=== PATIENT | male | born 1995 | race Caucasian/White ===

== ENCOUNTER 2021-06-18 02:33 | Emergency (ER) | payer BC, OTHER ==
[~2021-06-18] VITALS: Ht 182.9 cm; Wt 90.7 kg
[2021-06-18 04:29] LABS: ABSOLUTE NEUTROPHILS 1.9 thou/uL (1.4-8.2); BASOPHILS 0.5 % (0.0-2.0); EOSINOPHILS 3.1 % (0.0-3.0); HEMATOCRIT 42.8 % (42.0-52.0); HEMOGLOBIN 14.4 gm/dL (14.0-18.0); LYMPHOCYTES 36.7 % (24.0-44.0); MCHC 33.7 g/dL (28.0-37.0); MONOCYTES 16.5 % (1.0-8.0); PLATELET COUNT 252 thou/uL (150-400); POLYS 43.2 % (36.0-66.0); RBC 4.98 mil/uL (4.50-6.00); RDW 12.9 % (10.5-14.5); WBC 4.5 thou/uL (4.0-11.0)
[2021-06-18 04:32] LABS: CALCIUM 8.6 mg/dL (8.5-10.1); CREATININE 0.9 mg/dL (0.7-1.3); POTASSIUM 3.8 mmol/L (3.5-5.1)
[2021-06-18 04:42] LABS: ALBUMIN 4.1 g/dL (3.4-5.0); TOTAL BILIRUBIN 0.6 mg/dL (0.2-1.0); TOTAL PROTEIN 7.7 g/dL (6.4-8.2)
[2021-06-18] MEDS ORDERED: FLEXERIL PO (06:44)
[2021-06-18 06:54] VITALS: BP 111/75
--- NOTE | 2021-06-18 07:48 | EKG ---
[address] [address] ELECTROCARDIOGRAM REPORT Name: NACHO CABAN Room #: DEP Solitario#: [id number] Admission: 06/18/21 Attend Phys: Discharge: 06/18/21 Date of : [birth year] Report #: [id number] [facility] ED Test Date: 2021-06-18 Test Time: 03:09:51 Pat Name: NACHO CABAN Department: Room: Gender: [place] Operator[facility] : 1995 Requested By: Naren Roth Order Number: [id number] MD: Erik Tuttle Measurements Intervals [place] Rate: 69 P: 34 [place]: 150 QRS: 27 QRSD: 86 T: 11 QT: 390 QTc: 418 Interpretive Statements Sinus rhythm No previous ECG available for comparison Electronically Signed On 06-18-2021 7:47:32 TELETYPIST by Erik Tuttle [email or web address] <ELECTRONICALLY SIGNED> By: Erik Tuttle MD, [facility] 06/18/21 [id number] Erik Tuttle MD, FACC /EPI
== END 2021-06-18 06:55 | disposition home or self-care (01) ==
LOC: ER 02:33
PROVIDERS: Emergency Medicine
DX: R07.89 Other chest pain (principal); Z20.822 Contact with and (suspected) exposure to COVID-19